=== PATIENT | male | born 1960 | race Caucasian/White ===

== ENCOUNTER 2018-11-25 06:15 | Inpatient (IN) ==
[~2018-11-25 06:15] MED LIST: Dextrose 50 % in Water (Vial) 30 ML, Sodium Bicarbonate 20 MEQ, Lidocaine 1% 5 ML, Insu... TH ONE; Dextrose 50 % in Water (Vial) 30 ML, Sodium Bicarbonate 20 MEQ, Potassium Chloride 15 M... TH ONE; Heparin 15,000 UNIT in 0.9 % Sodium Chloride 500 ML IV ONE; Insulin Human Regular 100 UNIT in 0.9 % Sodium Chloride 100 ML IV PRN; Norepinephrine 4 MG in D5% in Water 250 ML IVC PRN
[2018-11-25] MEDS ORDERED: NiCARdipine 2.5 MG/10 ML Syringe IVPB ONE (06:37)
[2018-11-25] MEDS ORDERED: Nitroglycerin 25 MG/250 ML INFUS..BTL IVC ONE (06:37)
[2018-11-25] MEDS ORDERED: *HR* PHENYLEPHRINE 1,000 MCG/10 ML SYRINGE IVP ONE (06:43)
[2018-11-25] MEDS ORDERED: *HR* Rocuronium Bromide 50 MG/5 ML VIAL ONE ×2 (06:43→10:18)
[2018-11-25] MEDS ORDERED: *HR* FentaNYL (PF) 1,000 MCG/20 ML VIAL ONE (06:43)
[2018-11-25] MEDS ORDERED: *HR* Midazolam HCl 5 MG/5 ML VIAL IVP ONE (06:43)
[2018-11-25] MEDS ORDERED: Famotidine 20 MG/2 ML VIAL ONE (06:44)
[2018-11-25] MEDS ORDERED: Protamine Sulfate 250 MG/25 ML VIAL IVP ONE (06:44)
[2018-11-25] MEDS ORDERED: Calcium Gluconate 1,000 MG/10 ML VIAL ONE (06:44)
[2018-11-25] MEDS ORDERED: Tranexamic Acid 1,000 MG/10 ML VIAL ONE ×2 (06:44→09:03)
[2018-11-25] MEDS ORDERED: *HR* Etomidate 20 MG/10 ML AMPUL IVP ONE (06:44)
[2018-11-25] MEDS ORDERED: Aspirin 81 MG TAB.CHEW PO ONE (06:55)
[2018-11-25] MEDS ORDERED: Albuterol 2.5 MG/3 ML NEBULIZER IH ONE (06:56)
[2018-11-25] MEDS ORDERED: Chlorhexidine Rinse 15 ML MOUTHWASH MM ONE (06:56)
[2018-11-25] MEDS ORDERED: CeFAZolin Syr 2,000MG/20 ML 2,000 MG/20 ML SYRINGE IVPB ONE (06:56)
[2018-11-25] MEDS ORDERED: Ringers Solution, Lactated 1,000 ML IVC SCH (07:00)
[2018-11-25 08:02] LABS: ABG Base Excess 3 mEq/L (-2 to 3); ABG Chloride 105 mEq/L (98-107); ABG Glucose 156 mg/dL (60-95); ABG HCO3 25 mEq/L (21-27); ABG Ionized Calcium 1.16 mmol/L (1.15-1.35); ABG Oxygen Saturation 100 % (95-98); ABG PCO2 31 mmHg (35-45); ABG PH 7.52 pH Units (7.32-7.45); ABG PO2 159 mmHg (85-104); ABG TCO2 26 mEq/L (20-26)
[2018-11-25] MEDS ORDERED: *HR* Heparin 10,000 UNIT/10 ML VIAL IV ONE (08:11)
[2018-11-25] MEDS ORDERED: *HR* Phenylephrine 10 MG/ML VIAL IVC ONE (08:11)
[2018-11-25] MEDS ORDERED: Albumin Human 25% 25 GM/100 ML IV.SOLN IV ONE (08:11)
[2018-11-25] MEDS ORDERED: Lidocaine 2% Syringe 100 MG/5 ML IV ONE (08:11)
[2018-11-25] MEDS ORDERED: Tranexamic Acid 1,000 MG/10 ML VIAL IVPB ONE (08:11)
[2018-11-25] MEDS ORDERED: *HR* Magnesium Sulfate 2 GM/50 ML PIGGYBACK IVPB ONE (08:11)
[2018-11-25] MEDS ORDERED: Mannitol 25% vial 12.5 GM/50 ML VIAL IVP ONE (08:11)
[2018-11-25] MEDS ORDERED: niCARdipine 40 MG/200 ML MLS IVC ONE (08:36)
[2018-11-25 09:34] LABS: ABG Base Excess 2 mEq/L (-2 to 3); ABG Chloride 102 mEq/L (98-107); ABG Glucose 203 mg/dL (60-95); ABG HCO3 28 mEq/L (21-27); ABG Ionized Calcium 1.16 mmol/L (1.15-1.35); ABG Oxygen Saturation 100 % (95-98); ABG PCO2 48 mmHg (35-45); ABG PH 7.38 pH Units (7.32-7.45); ABG PO2 315 mmHg (85-104); ABG TCO2 30 mEq/L (20-26)
[2018-11-25 10:00] LABS: ABG Base Excess 2 mEq/L (-2 to 3); ABG Chloride 97 mEq/L (98-107); ABG Glucose 223 mg/dL (60-95); ABG HCO3 27 mEq/L (21-27); ABG Ionized Calcium 1.06 mmol/L (1.15-1.35); ABG Oxygen Saturation 100 % (95-98); ABG PCO2 45 mmHg (35-45); ABG PH 7.39 pH Units (7.32-7.45); ABG PO2 188 mmHg (85-104); ABG TCO2 29 mEq/L (20-26)
[2018-11-25] MEDS ORDERED: Amiodarone Premix 360 MG/200 ML BAG IVC ONE ×2 (10:25→11:44)
[2018-11-25] MEDS ORDERED: *HR* Amiodarone 150 MG/3 ML VIAL IVPB ONE (10:25)
[2018-11-25 11:05] LABS: ABG Base Excess 2 mEq/L (-2 to 3); ABG Chloride 100 mEq/L (98-107); ABG Glucose 187 mg/dL (60-95); ABG HCO3 27 mEq/L (21-27); ABG Ionized Calcium 1.06 mmol/L (1.15-1.35); ABG Oxygen Saturation 100 % (95-98); ABG PCO2 45 mmHg (35-45); ABG PH 7.39 pH Units (7.32-7.45); ABG PO2 413 mmHg (85-104); ABG TCO2 29 mEq/L (20-26)
[2018-11-25 11:33] LABS: ABG Base Excess -1 mEq/L (-2 to 3); ABG Chloride 106 mEq/L (98-107); ABG Glucose 151 mg/dL (60-95); ABG HCO3 25 mEq/L (21-27); ABG Ionized Calcium 1.14 mmol/L (1.15-1.35); ABG Oxygen Saturation 100 % (95-98); ABG PCO2 43 mmHg (35-45); ABG PH 7.37 pH Units (7.32-7.45); ABG PO2 250 mmHg (85-104); ABG TCO2 26 mEq/L (20-26)
[2018-11-25] MEDS ORDERED: Insulin Regular, Human 100 UNIT/ML IV PRN (11:44)
[2018-11-25] MEDS ORDERED: *HR* Dextrose 50 % in Water (Syg) 50 ML SYRINGE IVP PRN (11:44)
[2018-11-25] MEDS ORDERED: Ondansetron 4 MG/2 ML VIAL IVP PRN (11:44)
[2018-11-25] MEDS ORDERED: Potassium Chloride 40 MEQ/200 ML BAG IVPB PRN (11:44)
[2018-11-25] MEDS ORDERED: Acetaminophen 325 MG TABLET PO PRN (11:44)
[2018-11-25] MEDS ORDERED: Naloxone 0.4 MG/ML INJ IVP PRN (11:44)
[2018-11-25] MEDS ORDERED: Acetaminophen 650 MG RECTAL SUPP RC PRN (11:44)
[2018-11-25] MEDS ORDERED: Calcium Gluconate 1gm/50mL 1 GM/50 ML BAG IVPB PRN (11:44)
[2018-11-25] MEDS ORDERED: *HR* LORazepam 2 MG/ML VIAL IVP PRN (12:01)
[2018-11-25] MEDS: Insulin Human Regular 100 UNIT in 0.9 % Sodium Chloride 100 ML IVC SCH (12:05)
[2018-11-25 12:09] LABS: ABG Base Excess 2 mEq/L (-2 to 3); ABG HCO3 27 mEq/L (21-27); ABG Oxygen Saturation 98 % (95-98); ABG PCO2 44 mmHg (35-45); ABG PO2 98 mmHg (85-104); ABG TCO2 28 mEq/L (20-26); Blood Gas Modality ASSIST CONTROL; Blood Gas VT 550 cc
[2018-11-25 12:17] LABS: Basophils # 0.1 K/mcL (0.0-0.2); Basophils % 0.5 %; Eosinophils # 0.3 K/mcL (0.0-0.6); Hematocrit 38.1 % (37.5-50.1); Hemoglobin 13.1 g/dL (12.9-16.9); Immature Granulocytes % 0.8 % (0-4); Lymphocytes # 1.1 K/mcL (0.6-4.6); Lymphocytes % 6.5 %; Mean Corpuscular HGB Conc 34.4 g/dL (31.6-35.5); Mean Corpuscular Hemoglobin 31.4 pg (28.0-33.3); Mean Corpuscular Volume 91.4 fL (83.0-100.0); Mean Platelet Volume 10.2 fL (9.4-12.4); Monocytes # 0.7 K/mcL (0.0-1.3); Monocytes % 4.6 %; Neutrophils # 13.8 K/mcL (1.6-8.9); Platelet Count 128 K/mcL (140-400); Red Blood Count 4.17 M/mcL (4.19-5.50); Red Cell Distribution Width 12.4 % (11.5-14.5); Segmented Neutrophils % 85.6 %
[2018-11-25 12:27] LABS: INR 1.2
[2018-11-25 12:30] LABS: Activated Partial Thrombo Time 31.9 Seconds (26.0-36.0)
[2018-11-25] MEDS: Nitroglycerin 25 MG/250 ML INFUS..BTL IVC SCH ×2 (12:30→19:07)
[2018-11-25 12:32] LABS: BUN/Creatinine Ratio 10 (6-26); Blood Urea Nitrogen 10 mg/dL (6-20); Calcium 9.2 mg/dL (8.6-10.3); Carbon Dioxide 29 mEq/L (23-29); Chloride 105 mEq/L (98-107); Glucose 135 mg/dL (70-105); Magnesium 2.6 mg/dL (1.6-2.6); Osmolality,Calculated 289 (280-300); Potassium 3.4 mEq/L (3.5-5.1); Prothrombin Time 13.8 Seconds (9.4-12.1); Sodium 139 mEq/L (136-145); White Blood Count 16.1 K/mcL (4.3-11.1); eGFR For African Americans > 60 (> 60); eGFR For Non-African Americans > 60 (> 60)
[2018-11-25] MEDS: 0.9 % Sodium Chloride w KCl 20 MEQ/1,000 ML MLS IVC SCH (12:57)
[2018-11-25] MEDS: Ketorolac 15 MG/ML VIAL IVP SCH ×3 (12:58→23:03)
[2018-11-25] MEDS: Metoclopramide 10 MG/2 ML VIAL IVP SCH ×3 (12:58→23:03)
[2018-11-25] MEDS: Pantoprazole 40 MG VIAL IVP SCH (13:26)
[2018-11-25] MEDS: *HR* FentaNYL (PF) 100 MCG/2 ML VIAL IVP PRN ×3 (13:27→21:06)
[2018-11-25] MEDS: niCARdipine 20 MG in 0.9 % Sodium Chloride 192 ML IVC SCH (13:41)
[2018-11-25] MEDS: *HR* OxyCODONE/APAP 5/325 TABLET PO PRN (14:52)
[2018-11-25] MEDS ORDERED: 0.9 % Sodium Chloride 250 ML ONE (15:07)
[2018-11-25] MEDS: Amiodarone Premix 360 MG/200 ML BAG IVC SCH (15:48)
[2018-11-25] MEDS: ceFAZolin 2,000 MG in 0.9 % Sodium Chloride 100 ML IVPB SCH ×2 (15:49→23:02)
[2018-11-25 16:11] LABS: Hemoglobin 14.3 g/dL (12.9-16.9)
[2018-11-25 16:20] LABS: ABG Base Excess 3 mEq/L (-2 to 3); ABG HCO3 29 mEq/L (21-27); ABG Oxygen Saturation 94 % (95-98); ABG PCO2 47 mmHg (35-45); ABG PO2 73 mmHg (85-104); ABG TCO2 31 mEq/L (20-26); Blood Gas Modality CPAP/PS; Blood Gas Pressure Support 8 cm H2O
[2018-11-25 17:17] LABS: ABG Base Excess 3 mEq/L (-2 to 3); ABG HCO3 29 mEq/L (21-27); ABG Oxygen Saturation 93 % (95-98); ABG PCO2 48 mmHg (35-45); ABG PH 7.38 pH Units (7.32-7.45); ABG PO2 67 mmHg (85-104); ABG TCO2 30 mEq/L (20-26)
[2018-11-25] MEDS: Thiamine (B-1) 100 MG, Folic Acid 1 MG, MVI, adult with vitamin K 10 ML in 0.9 % Sodi... IVPB SCH (17:45)
[2018-11-25] MEDS: Norepinephrine 4 MG in D5% in Water 250 ML IVC SCH (19:07)
[2018-11-25] MEDS: Chlorhexidine Rinse 15 ML MOUTHWASH MM SCH (20:08)
[2018-11-26] MEDS: niCARdipine 20 MG in 0.9 % Sodium Chloride 192 ML IVC SCH ×2 (00:42→03:49)
[2018-11-26] MEDS: *HR* FentaNYL (PF) 100 MCG/2 ML VIAL IVP PRN ×2 (03:00→11:05)
[2018-11-26] MEDS: Amiodarone Premix 360 MG/200 ML BAG IVC SCH (03:00)
[2018-11-26] MEDS: Nitroglycerin 25 MG/250 ML INFUS..BTL IVC SCH ×4 (03:01→23:01)
[2018-11-26 03:15] LABS: Basophils % 0.2 %; Eosinophils % 0.1 %; Hemoglobin 13.8 g/dL (12.9-16.9); Immature Granulocytes % 0.5 % (0-4); Lymphocytes % 5.4 %; Mean Corpuscular HGB Conc 34.5 g/dL (31.6-35.5); Mean Corpuscular Hemoglobin 31.8 pg (28.0-33.3); Mean Corpuscular Volume 92.2 fL (83.0-100.0); Monocytes # 1.9 K/mcL (0.0-1.3); Monocytes % 10.3 %; Platelet Count 165 K/mcL (140-400); Red Blood Count 4.34 M/mcL (4.19-5.50); Red Cell Distribution Width 12.7 % (11.5-14.5); Segmented Neutrophils % 83.5 %
[2018-11-26] MEDS: *HR* OxyCODONE/APAP 5/325 TABLET PO PRN ×4 (03:21→20:03)
[2018-11-26 03:23] LABS: INR 1.2; Prothrombin Time 13.3 Seconds (9.4-12.1)
[2018-11-26 03:25] LABS: Activated Partial Thrombo Time 34.6 Seconds (26.0-36.0)
[2018-11-26 03:40] LABS: BUN/Creatinine Ratio 10 (6-26); Blood Urea Nitrogen 8 mg/dL (6-20); Calcium 8.2 mg/dL (8.6-10.3); Carbon Dioxide 27 mEq/L (23-29); Chloride 106 mEq/L (98-107); Glucose 165 mg/dL (70-105); Magnesium 1.8 mg/dL (1.6-2.6); Osmolality,Calculated 292 (280-300); Potassium 3.4 mEq/L (3.5-5.1); Sodium 140 mEq/L (136-145); eGFR For African Americans > 60 (> 60); eGFR For Non-African Americans > 60 (> 60)
[2018-11-26] MEDS: Metoclopramide 10 MG/2 ML VIAL IVP SCH ×4 (05:03→23:01)
[2018-11-26] MEDS: Ketorolac 15 MG/ML VIAL IVP SCH ×4 (05:03→23:01)
[2018-11-26] MEDS ORDERED: *HR* FentaNYL (PF) 100 MCG/2 ML VIAL IVP PRN ×3 (05:39→11:19)
[2018-11-26] MEDS: *HR* Heparin 5,000 UNIT/ML VIAL SQ SCH ×2 (07:15→17:21)
[2018-11-26] MEDS: Furosemide 20 MG/2 ML VIAL IVP SCH ×2 (07:49→17:20)
[2018-11-26] MEDS: Chlorhexidine Rinse 15 ML MOUTHWASH MM SCH ×2 (07:49→20:09)
[2018-11-26] MEDS: Pantoprazole 40 MG VIAL IVP SCH (07:50)
[2018-11-26] MEDS: *HR* Amiodarone 200 MG TABLET PO SCH (07:50)
[2018-11-26] MEDS: Vitamin B Complex/Vit C/Vit E 1 EACH TABLET PO SCH (07:50)
[2018-11-26] MEDS: 0.9 % Sodium Chloride w KCl 20 MEQ/1,000 ML MLS IVC SCH (08:20)
[2018-11-26 10:14] LABS: ABG Base Excess 2 mEq/L (-2 to 3); ABG HCO3 28 mEq/L (21-27); ABG Oxygen Saturation 92 % (95-98); ABG PCO2 45 mmHg (35-45); ABG PH 7.39 pH Units (7.32-7.45); ABG PO2 64 mmHg (85-104); ABG TCO2 29 mEq/L (20-26)
[2018-11-26] MEDS: Insulin Human Regular 100 UNIT in 0.9 % Sodium Chloride 100 ML IVC SCH (15:00)
[2018-11-26] MEDS: Norepinephrine 4 MG in D5% in Water 250 ML IVC SCH (15:01)
[2018-11-26] MEDS: Thiamine (B-1) 100 MG, Folic Acid 1 MG, MVI, adult with vitamin K 10 ML in 0.9 % Sodi... IVPB SCH (17:28)
[2018-11-26] MEDS: Budesonide/Formoterol 160/4.5 1 PUFF INH IH SCH (19:42)
[2018-11-27 03:19] LABS: Basophils % 0.2 %; Eosinophils % 0.3 %; Hematocrit 40.2 % (37.5-50.1); Hemoglobin 13.5 g/dL (12.9-16.9); Immature Granulocytes % 0.4 % (0-4); Lymphocytes # 1.1 K/mcL (0.6-4.6); Lymphocytes % 7.4 %; Mean Corpuscular HGB Conc 33.6 g/dL (31.6-35.5); Mean Corpuscular Hemoglobin 31.9 pg (28.0-33.3); Mean Platelet Volume 10.7 fL (9.4-12.4); Monocytes # 1.4 K/mcL (0.0-1.3); Neutrophils # 12.7 K/mcL (1.6-8.9); Platelet Count 132 K/mcL (140-400); Red Blood Count 4.23 M/mcL (4.19-5.50); Red Cell Distribution Width 12.9 % (11.5-14.5); Segmented Neutrophils % 82.7 %; White Blood Count 15.4 K/mcL (4.3-11.1)
[2018-11-27 03:39] LABS: BUN/Creatinine Ratio 16 (6-26); Blood Urea Nitrogen 12 mg/dL (6-20); Calcium 8.7 mg/dL (8.6-10.3); Carbon Dioxide 30 mEq/L (23-29); Chloride 104 mEq/L (98-107); Glucose 143 mg/dL (70-105); Osmolality,Calculated 290 (280-300); Potassium 3.4 mEq/L (3.5-5.1); Sodium 139 mEq/L (136-145); eGFR For African Americans > 60 (> 60); eGFR For Non-African Americans > 60 (> 60)
[2018-11-27] MEDS: *HR* OxyCODONE/APAP 5/325 TABLET PO PRN ×2 (04:07→09:11)
[2018-11-27] MEDS: Metoclopramide 10 MG/2 ML VIAL IVP SCH ×4 (05:00→23:25)
[2018-11-27] MEDS: *HR* Heparin 5,000 UNIT/ML VIAL SQ SCH ×2 (05:00→19:00)
[2018-11-27] MEDS: Ketorolac 15 MG/ML VIAL IVP SCH ×4 (05:01→23:25)
[2018-11-27] MEDS: Budesonide/Formoterol 160/4.5 1 PUFF INH IH SCH ×2 (07:52→20:31)
[2018-11-27] MEDS: Vitamin B Complex/Vit C/Vit E 1 EACH TABLET PO SCH (08:58)
[2018-11-27] MEDS: Furosemide 20 MG/2 ML VIAL IVP SCH ×2 (08:58→18:28)
[2018-11-27] MEDS: Pantoprazole 40 MG VIAL IVP SCH (08:58)
[2018-11-27] MEDS: *HR* Amiodarone 200 MG TABLET PO SCH (08:58)
[2018-11-27] MEDS: Chlorhexidine Rinse 15 ML MOUTHWASH MM SCH ×2 (08:59→20:40)
[2018-11-27] MEDS ORDERED: Aspirin Enteric Coated 81 MG Tablet PO SCH (09:00)
[2018-11-27] MEDS ORDERED: *HR* LORazepam 2 MG/ML VIAL IVP PRN (09:12)
[2018-11-27] MEDS ORDERED: Acetaminophen 325 MG TABLET PO PRN (09:12)
[2018-11-27] MEDS ORDERED: *HR* Dextrose 50 % in Water (Syg) 50 ML SYRINGE IVP PRN (09:12)
[2018-11-27] MEDS ORDERED: Ondansetron 4 MG/2 ML VIAL IVP PRN (09:12)
[2018-11-27] MEDS ORDERED: Nitroglycerin 25 MG/250 ML INFUS..BTL IVC SCH (09:12)
[2018-11-27] MEDS ORDERED: Dextrose Gel 15 GM/37.5 ML TUBE PO PRN ×2 (09:12)
[2018-11-27] MEDS ORDERED: Insulin Regular, Human 100 UNIT/ML IV PRN (09:12)
[2018-11-27] MEDS ORDERED: Naloxone 0.4 MG/ML INJ IVP PRN (09:12)
[2018-11-27] MEDS ORDERED: *HR* FentaNYL (PF) 100 MCG/2 ML VIAL IVP PRN (09:12)
[2018-11-27] MEDS ORDERED: D5% in Water 1,000 ML IVC PRN (09:12)
[2018-11-27] MEDS: carvediloL 6.25 MG TABLET PO SCH ×2 (10:31→18:27)
[2018-11-27] MEDS: Insulin LISPRO 300 UNITS/3 ML VIAL SQ SCH ×4 (10:32→20:40)
[2018-11-27] MEDS: *HR* Metformin 500 MG TABLET PO SCH ×2 (12:46→18:27)
[2018-11-27] MEDS ORDERED: Thiamine (B-1) 100 MG, Folic Acid 1 MG, MVI, adult with vitamin K 10 ML in 0.9 % Sodi... IVPB SCH (18:00)
[2018-11-28] MEDS: Metoclopramide 10 MG/2 ML VIAL IVP SCH ×2 (05:27→11:26)
[2018-11-28] MEDS: *HR* Heparin 5,000 UNIT/ML VIAL SQ SCH ×2 (05:27→17:20)
[2018-11-28] MEDS: Ketorolac 15 MG/ML VIAL IVP SCH ×4 (05:27→23:07)
[2018-11-28] MEDS: Budesonide/Formoterol 160/4.5 1 PUFF INH IH SCH ×2 (07:56→20:07)
[2018-11-28] MEDS: Chlorhexidine Rinse 15 ML MOUTHWASH MM SCH ×2 (08:20→21:10)
[2018-11-28] MEDS: Vitamin B Complex/Vit C/Vit E 1 EACH TABLET PO SCH (08:21)
[2018-11-28] MEDS: carvediloL 6.25 MG TABLET PO SCH ×2 (08:21→17:21)
[2018-11-28] MEDS: Furosemide 20 MG/2 ML VIAL IVP SCH ×2 (08:21→17:20)
[2018-11-28] MEDS: Aspirin Enteric Coated 81 MG Tablet PO SCH (08:21)
[2018-11-28] MEDS: *HR* Amiodarone 200 MG TABLET PO SCH (08:21)
[2018-11-28] MEDS: *HR* Metformin 500 MG TABLET PO SCH ×2 (08:21→17:21)
[2018-11-28] MEDS: Pantoprazole 40 MG VIAL IVP SCH (08:22)
[2018-11-28] MEDS: Lisinopril 20 MG TABLET PO SCH (08:22)
[2018-11-28] MEDS: Insulin LISPRO 300 UNITS/3 ML VIAL SQ SCH ×4 (08:26→21:15)
[2018-11-28] MEDS: *HR* OxyCODONE/APAP 5/325 TABLET PO PRN ×2 (14:24→21:14)
[2018-11-29] MEDS: *HR* Heparin 5,000 UNIT/ML VIAL SQ SCH (05:27)
[2018-11-29] MEDS: Ketorolac 15 MG/ML VIAL IVP SCH (05:27)
[2018-11-29 07:15] VITALS: BP 151/83
[2018-11-29] MEDS: Budesonide/Formoterol 160/4.5 1 PUFF INH IH SCH (07:30)
[2018-11-29] MEDS: Chlorhexidine Rinse 15 ML MOUTHWASH MM SCH (07:57)
[2018-11-29] MEDS: Vitamin B Complex/Vit C/Vit E 1 EACH TABLET PO SCH (07:57)
[2018-11-29] MEDS: Lisinopril 20 MG TABLET PO SCH (07:57)
[2018-11-29] MEDS: Aspirin Enteric Coated 81 MG Tablet PO SCH (07:57)
[2018-11-29] MEDS: Pantoprazole 40 MG VIAL IVP SCH (07:57)
[2018-11-29] MEDS: *HR* Amiodarone 200 MG TABLET PO SCH (07:57)
[2018-11-29] MEDS: *HR* Metformin 500 MG TABLET PO SCH (07:57)
[2018-11-29] MEDS: Insulin LISPRO 300 UNITS/3 ML VIAL SQ SCH (07:57)
[2018-11-29] MEDS: carvediloL 6.25 MG TABLET PO SCH (07:58)
== END 2018-11-29 11:57 | disposition home or self-care (01) | DRG 235 ==
LOC: SAMDAY 06:15 → ICNU 10:27 → 2NNU 11-27 12:13
PROVIDERS: ADMIT Thoracic Surgery (Cardiothoracic Vascular Surgery); ATTEND Thoracic Surgery (Cardiothoracic Vascular Surgery)